=== PATIENT | male | born 1975 | race Caucasian/White ===

== ENCOUNTER 2016-12-26 19:09 | Emergency (ER) | payer BC ==
--- NOTE | ~2016-12-26 | CT4 ---
[facility] A Service of [facility] RADIOLOGY TEXT RESULTS PATIENT: STEVEN LARES LOCATION: [facility] : [birth year] UNIT #: [id number] AGE: [address]: Keron Mcclain MD SEX: M ORDER DR: [id number] [place] [address] [facility]. [place], [place] [address] [id number] E MR#: [id number] Acc #: [id number] NAME: STEVEN LARES : 1975 SEX: M STUDY DATE/TIME: 12/26/2016 18:40 UNIT: [facility] ROOM: STUDY DESCRIPTION: CT Abd and Pelv Wo Cont Attending Physician: Keron Mcclain M.D. Ordering Physician: Keron Mcclain M.D. MEDICAL IMAGING REPORT This report is preliminary unless electronic signature is present EXAM CT abdomen and pelvis without contrast HISTORY Nausea, vomiting, and diarrhea for [address] exam was performed with one or more of the following radiation dose reduction techniques: automatic control, adjustment of mA and/or kV according to patient size, and iterative reconstruction. FINDINGS CT abdomen and pelvis was performed without contrast CT ABDOMEN: No bowel dilatation. Cholecystectomy. The liver, spleen, pancreas, right kidney, and adrenal glands are normal. 5 mm parenchymal calcification in the lateral mid-left kidney. Apparent interval passage of a lower pole left renal stone compared to CT 07/12/2016. Normal caliber abdominal aorta. No adenopathy or ascites. CT PELVIS: Normal appendix. Mild wall thickening of the distal sigmoid colon extending to the central pelvis, could be secondary to short-segment infectious or inflammatory colitis, but there is no adjacent pericolonic stranding. No free fluid in the pelvis. Urinary bladder is unremarkable. Incidental prostatic calcifications. Small umbilical hernia containing fat. IMPRESSION 1. Mild wall thickening of the distal sigmoid colon extending to the central pelvis could be due to mild infectious or inflammatory colitis. However, there is no adjacent inflammatory stranding and no free fluid in the abdomen or pelvis. 2. No acute finding on the remainder of the study. [facility] A Service of [facility] RADIOLOGY TEXT RESULTS PATIENT: STEVEN LARES LOCATION: [facility] : [birth year] UNIT #: [id number] AGE: [address]: Keron Mcclain MD SEX: M ORDER DR: 3. Normal appendix. 4. Cholecystectomy. 5. Small umbilical hernia containing fat measuring close to 1.5 cm. Dictated by... Chun Reis M.D. THIS IS AN ELECTRONICALLY VERIFIED REPORT Chun Reis M.D. at 12/27/2016 4:35 PM DFCasandra/tiffanie TD: 12/26/2016 19:15 JOB #: [id number] MEDICAL IMAGING REPORT Page 1 of 1 COPY
[2016-12-26 15:48] LABS: BASOPHIL% 0.3 % (0-2.5); EOSINOPHIL# 0.1 X10e3 (0-0.7); EOSINOPHIL% 0.8 % (0.0-7.0); HEMATOCRIT 49.4 % (38.0-50.0); HEMOGLOBIN 16.7 gm/dL (13.0-16.0); LYMPHOCYTE# 1.6 X10e3 (1.0-3.5); LYMPHOCYTE% 15.5 % (17.0-45.0); MEAN CELL VOLUME 85.4 FL (83-96); MEAN CORPUSCULAR HEMOGLOBIN 28.9 PG (28-34); MEAN CORPUSCULAR HGB CONC 33.8 g/dL (30-36); MEAN PLATELET VOLUME 9.5 FL (6.5-11.5); MONOCYTE# 0.8 X10e3 (0-1.0); MONOCYTE% 7.6 % (3.0-12.0); NEUTROPHIL# 7.8 X10e3 (1.5-7.1); NEUTROPHIL% 75.8 % (40-75); PLATELET COUNT 256 X10e3 (140-420); RED BLOOD COUNT 5.78 X10e (3.90-5.60); WHITE BLOOD COUNT 10.3 X10e3 (4.0-10.5)
[2016-12-26 15:51] LABS: DIFF IND NO
[2016-12-26 16:24] LABS: ALBUMIN SERUM 4.3 g/dL (3.5-5.0); BILIRUBIN, DIRECT 0.5 mg/dL (0.0-0.2); BILIRUBIN,INDIRECT 0.7 mg/dL (0.0-0.9); BILIRUBIN,TOTAL 1.2 mg/dL (0.2-2.0); BUN/CREATININE RATIO 7.69; CALCIUM SERUM 9.7 mg/dL (8.4-10.2); CREATININE SERUM 1.3 mg/dL (0.6-1.4); GLOM FILT RATE Estimated 67.3 mL/min (>60); POTASSIUM 3.8 mmol/L (3.5-5.1); PROTEIN TOTAL SERUM 7.2 g/dL (6.0-8.3)
[~2016-12-26 19:09] MED LIST: AFRIN15 M1 PO; AZITHROMYCIN250 MG PO; BACTRIM DS TABL1 TA1 PO; BACTRIM DS TABL1 TA2 PO; CIPRO PO; CIPRO250 MG PO; DICLOFENAC PO; FAMOTIDINE PO; FIORICET 50-321 EACH; FLONASE16 GM; HELIDAC KIT; KEFLEX500 M1 PO; LORTAB 5/500 TA1 TA2 PO; NO MEDICATIONS; PHENERGAN25 MG PO; SUDAFED30 M1 PO; TYLENOL #3 PO; VICODIN 5/1 TAB 5/50 PO; VOLTAREN75 MG PO; ZITHROMAX PO
[2016-12-26 19:29] LABS: URINE SOURCE CLEAN CATCH
[2016-12-26 19:30] LABS: CULTURE INDICATED? YES; URBCS1 AUWI 0-2 /[HPF] (0-2); URINE APPEARANCE CLOUDY; URINE BACTERIA AUWI NEG (NEGATIVE); URINE BILIRUBIN NEG (NEG); URINE BLOOD NEG (NEG); URINE COLOR DK YELLOW; URINE GLUCOSE NEG (NEG); URINE KETONE NEG (NEG); URINE LEUKOCYTE ESTERASE NEG (NEG); URINE NITRATE NEG (NEG); URINE PROTEIN 1+ (NEG); URINE SPECIFIC GRAVITY 1.019 (1.003-1.035); URINE SQUAMOUS EPITHELIAL CELL MOD /[HPF]; URINE UROBILINOGEN 0.2 MG/DL (NEG)
== END 2016-12-26 20:35 | disposition home or self-care (01) ==
LOC: CED 19:09
DX: R11.2 Nausea with vomiting, unspecified (principal); R19.7 Diarrhea, unspecified; R79.89 Other specified abnormal findings of blood chemistry; Z87.442 Personal history of urinary calculi; Z90.49 Acquired absence of other specified parts of digestive tract
CPT/HCPCS: 36415; 74176; 80048; 80076; 81003; 83690; 85025; 87086; 96361; 96374; 99284; G0480; J2405

== ENCOUNTER 2017-01-06 16:53 | Observation (INO) | payer BC ==
--- NOTE | ~2017-01-06 | HP ---
Unit #: [id number] #: [id number] Patient: STEVEN LARES [id number] [address] [place], [place] [address] [id number] I MR#: [id number] NAME: STEVEN LAERS ROOM: 226 Age: 41 Sex: M Admission Date: 01/06/2017 : 1975 Attending Physician: Bharat Cary M.D. Referring Physician: Sheldon Sloan M.D. Primary Care Physician: Sheldon Sloan M.D. HISTORY AND PHYSICAL CHIEF COMPLAINT Abdominal pain, nausea, and vomiting. HISTORY OF PRESENTING ILLNESS A 41-year-old male who is pretty healthy with no significant past medical history came because he has been having nausea, vomiting, and diarrhea since December 21. He did have an appointment tomorrow with his primary care provider, Dr. Sloan. Patient was not getting improved. He was taking Zofran [id number]. He came to the ER and was admitted for possible colitis. Patient still feels nauseous. He does not complain of any fever, chills, or rigors, no complaint of hematemesis or hematochezia, no complaint of black-colored stools, and no complaint of chest pain or palpitations. According to patient, this is the first time it has happened to him, and he has never had this problem in the past. PAST MEDICAL HISTORY History of asthma as a child. He is not on any medication at this time. PAST SURGICAL HISTORY 1. Cholecystectomy. 2. Sinus surgery. 3. Lithotripsy multiple times for kidney stones. HOME MEDICATIONS Zofran on p.r.n. basis. ALLERGIES No known drug allergies. SOCIAL HISTORY Patient lives at home with his girlfriend. No history of smoking, alcohol, or drug abuse. FAMILY HISTORY Patient is adopted, so he does not know any family history. PHYSICAL EXAMINATION GENERAL: Patient is lying in bed and does not seem to be in any respiratory distress at this time. He seems pretty comfortable and stable. VITAL SIGNS: Blood pressure is 100/58, respiratory rate 16, pulse 62, temperature 97.5, and oxygen saturation is 99%. HEENT: Head is normocephalic. Eye movements are normal. Conjunctivae are clear. NECK: Supple. No carotid bruit. Unit #: [id number] #: [id number] Patient: STEVEN LARES CHEST: Fair air entry. No additional sounds. CARDIOVASCULAR: S1 and S2 positive. Regular rhythm. ABDOMEN: Soft. Tenderness is present in the right lower quadrant more than the left. Bowel sounds are positive all over. EXTREMITIES: Negative edema. Pulses are palpable. CENTRAL NERVOUS SYSTEM: Awake, alert, and oriented x3. No focal neurological deficit. DIAGNOSTIC STUDIES LABORATORY: WBC 5.8, hemoglobin 13.3, hematocrit 39.8, and platelet count of 160,000. Sodium 139, potassium 3.7, BUN 6, creatinine 0.8, ALT slightly elevated at 44, and indirect bilirubin 1, slightly elevated. Lipase is 20 and amylase is 26. Urinalysis was done which shows trace leukocyte esterase, RBCs 5-10, and urine bacteria is negative. Shigella and stool culture done in the stool which is negative so far. C. difficile has been done which is negative. IMAGING: CT scan of the abdomen and pelvis was done which shows mild residual wall thickening in the sigmoid colon in the same area of wall thickening seen on December 26, 2016. There is no pericolonic stranding, fluid, abscess, or perforation. ASSESSMENT Patient is being admitted to medical/surgical unit with: 1. Intractable nausea, vomiting, and diarrhea. 2. Possible colitis. 3. History of asthma which is stable. PLAN Admit to med/surg unit. Gastroenterology has been consulted. Patient is scheduled for colonoscopy and EGD. IV Flagyl 500 mg t.i.d. is being started, and Levaquin 750 mg daily is being started. Lortab on a p.r.n. basis, Pepcid 20 mg daily, and Zofran on a p.r.n. basis. Labs will be repeated tomorrow morning. The plan of care has been discussed with patient at length, and he does verbalize understanding. Dictated by Casandra Ugalde TD: 01/07/2017 16:01 JOB #: [id number] HISTORY AND PHYSICAL Page 1 of 1 X Leticia Farnsworth MD X HISTORY AND PHYSICAL
--- NOTE | ~2017-01-06 | CT2 ---
[facility] A Service of [facility] RADIOLOGY TEXT RESULTS PATIENT: STEVEN LARES LOCATION: [facility] 226-01 : [birth year] UNIT #: [id number] AGE: [address]: Bharat Cary MD SEX: M ORDER DR: [id number] [facility] [address] [place], [place] [address] [id number] I MR#: [id number] Acc #: [id number] NAME: STEVEN LARES : 1975 SEX: M STUDY DATE/TIME: 01/06/2017 18:51 UNIT: [facility] ROOM: 03647 STUDY DESCRIPTION: CT Abd and Pelv W Cont Attending Physician: Bharat Cary M.D. Referring Physician: Sheldon Sloan M.D. Ordering Physician: Perry Herron D.O. Primary Care Physician: Sheldon Sloan M.D. MEDICAL IMAGING REPORT This report is preliminary unless electronic signature is present EXAM CT abdomen and pelvis with contrast 01/06/2017 1851 hours HISTORY 41-year-old man with complaint of diffuse abdominal pain, vomiting and diarrhea since 12/22/2016. History of prior kidney stones and lithotripsy. COMPARISON CT abdomen and pelvis 12/26/[address] images were obtained from the lung bases to the pubic symphysis with oral and intravenous contrast. Sagittal and coronal reconstructions were performed. Contrast was Isovue-370 100 mL IV. Total exam DLP 913 mGy-cm. This CT exam was performed with one or more of the following radiation dose reduction techniques: Automatic exposure control, adjustment of mA and/or kV according to patient size, and iterative reconstruction. FINDINGS Images through the lung bases are clear. There is no pleural effusion or pneumothorax. The distal esophagus is normal. Images through the abdomen demonstrate a normal appearance to the liver, spleen, pancreas and bile ducts. The gallbladder is surgically absent. The adrenal glands are normal. The kidneys demonstrate no mass, stone or obstruction. There are no ureteral calculi. The abdominal aorta is normal in caliber. The stomach is contracted and unopacified but does appear normal. There is good opacification of the small bowel throughout, with no small bowel wall thickening or distension. The terminal ileum is normal. The [facility] A Service of [facility] RADIOLOGY TEXT RESULTS PATIENT: STEVEN LARES LOCATION: [facility] 226-01 : [birth year] UNIT #: [id number] AGE: [address]: Bharat Cary MD SEX: M ORDER DR: appendix is normal. The colon is moderately well opacified throughout. The right colon, transverse colon and descending colon are normal. Question is raised of minimal residual bowel wall thickening in the sigmoid colon at the same region of mild bowel wall thickening seen on 12/26/2016. If this is a true finding, it is felt likely stable or slightly improved. There is no injection of the pericolonic fat. There is no fluid or abscess. There is no free air. CT pelvis demonstrates a normal appearance to the bladder and seminal vesicles. There are coarse calcifications in the prostate, which are unchanged. The prostate is not enlarged. IMPRESSION 1. Probable mild residual wall thickening in the sigmoid colon in the same area of wall thickening seen on 12/26/2016. This is felt to be stable, perhaps minimally improved. There is no pericolonic stranding, fluid, abscess or perforation. 2. The stomach, small bowel and appendix are normal. Dictated by... Juana Kirk M.D. THIS IS AN ELECTRONICALLY VERIFIED REPORT Juana Kirk M.D. at 01/07/2017 9:29 AM BOSTON/hadley TD: 01/06/2017 23:14 JOB #: [id number] MEDICAL IMAGING REPORT Page 1 of 1 COPY
--- NOTE | ~2017-01-06 | CO ---
Unit #: [id number] #: [id number] Patient: STEVEN LARES [id number] [facility]. [address] [place], [place] [address] [id number] I MR#: [id number] NAME: STEVEN LARES ROOM: 226 Age: 41 Sex: M Admission Date: 01/06/2017 : 1975 Attending Physician: Bharat Cary M.D. Primary Care Physician: Sheldon Sloan M.D. Consultation Date: 01/07/2017 CONSULTATION REPORT PRIMARY CARE PHYSICIAN Sheldon Sloan M.D. REASON FOR CONSULTATION Nausea, vomiting, abdominal pain, and colitis. HISTORY OF PRESENT ILLNESS Mr. Lares is a 41-year-old white gentleman, who works as a photocopy operator. For the past two weeks, he has been having recurrent nausea, vomiting, as well as watery nonbloody diarrhea both during the daytime as well as nighttime. The patient has had two visits to the emergency room and had CAT scan twice and the CAT scan shows left-sided colitis. He denies having any skin rash, fever, or aphthous ulcer in mouth. PAST MEDICAL HISTORY No significant past medical history of note. PAST SURGICAL HISTORY Included cholecystectomy, sinus surgery, and multiple lithotripsies for renal stones. HOME MEDICATIONS Include Zofran. ALLERGIES He has no known drug allergies. SOCIAL HISTORY Lives at home with his girlfriend. Does not smoke or drink alcohol, and does not use any drugs. FAMILY HISTORY Adopted. REVIEW OF SYSTEMS Detailed review of organ systems does not reveal any recent weight loss. No history of fever, chills, or rigors. No history of headache, seizures, chest pain, or syncope. No history of cough, expectoration, or hemoptysis. No history of dysuria, hematuria, or pyuria. No history of focal seizures or extremity weakness. Rest of the review of organ systems is unremarkable. PHYSICAL EXAMINATION GENERAL: On examination, he is alert and oriented, appears comfortable. Unit #: [id number] #: [id number] Patient: STEVEN LARES VITAL SIGNS: Stable with a temperature of 97.8, pulse is 66 per minute and regular, respiratory rate is 16, blood pressure 100/56. HEENT: He has no pallor, icterus, lymphadenopathy, or peripheral edema. CARDIOVASCULAR: Normal heart sounds. No murmurs on auscultation. LUNGS: Reveal normal breath sounds. Good air entry. ABDOMEN: Soft and nontender. Liver and spleen are not palpable. Bowel sounds normal. DIAGNOSTIC STUDIES LABORATORY RESULTS: Shows a normal CBC and serum chemistry with albumin which is preserved at 3.6. IMAGING STUDIES: A CT scan of the abdomen, which was done shows possible sigmoid colitis. CLINICAL IMPRESSION The differential diagnosis here includes gastroenteritis versus infectious colitis versus autoimmune ulcerative colitis. A panendoscopy is warranted. Pros and cons of an upper endoscopy and a colonoscopy were discussed with the patient. He was reassured. The patient will be reviewed following the endoscopic workup. Thank you for asking me to see this pleasant gentleman. I appreciate the consult. Dictated by... Casandra Berry/xochitl TD: 01/08/2017 04:49 JOB #: [id number] Leticia Farnsworth M.D. CONSULTATION REPORT Page 1 of 1 X Florin Mittal MD X CONSULTATION REPORT
--- NOTE | ~2017-01-06 | OR ---
Unit #: [id number] #: [id number] Patient: STEVEN LARES [id number] [address] [place], [place] [address] [id number] I MR#: [id number] NAME: STEVEN LARES ROOM: 226 Date of Procedure: 01/07/2017 Admission Date: 01/06/2017 Surgeon: Florin Mittal M.D. : 1975 Attending Physician: Bharat Cary M.D. Referring Physician: Sheldon Sloan M.D. Primary Care Physician: Sheldon Sloan M.D. OPERATIVE REPORT ADDITIONAL ATTENDING PHYSICIAN Leticia Farnsworth M.D. PRIMARY CARE PHYSICIAN Sheldon Sloan M.D. PREOPERATIVE DIAGNOSES Nausea, vomiting, diarrhea, and colitis on a CAT scan, as well as left and right lower quadrant abdominal pain. PROCEDURES PERFORMED Upper gastrointestinal endoscopy and biopsy as well as colonoscopy with biopsies. POSTOPERATIVE DIAGNOSES For upper endoscopy: Mild antral gastritis, otherwise normal examination up to third part of duodenum. Biopsies were obtained from the antrum for CLOtest. For colonoscopy: Completely normal examination up to cecum and terminal ileum. The quality of the prep was good. Multiple random colonic biopsies were obtained from throughout the colon to rule out microscopic or collagenous colitis. No endoscopic evidence of colitis was seen. RECOMMENDATIONS Symptomatic and supportive treatment is indicated. The patient will be discharged on Colestid and Lomotil, and be followed up in the office in 6 to 8 weeks' time. He can also discontinue Flagyl and Levaquin. SEDATION USED Procedural sedation. A total of 8 mg of Versed and 75 mcg of fentanyl was used. DESCRIPTION OF PROCEDURE Following detailed explanation of potential risks and complications of an upper endoscopy and a colonoscopy, namely perforation, bleeding, complication related to sedation, the patient was brought to GI lab and laid in the left lateral decubitus position. Lubricated tip of the Olympus video upper endoscope was passed through the bite block into the proximal esophagus under direct vision. The entire esophageal mucosa was examined and appeared normal. Z-line was nicely demarcated, there being no esophagitis or hiatus hernia. The scope was then advanced into the Unit #: [id number] #: [id number] Patient: STEVEN LARES gastric cavity and the latter was insufflated. Mucosa of the fundus, body, and antrum was examined. The patient was noted to have mild prepyloric antral erythema and erythematous streaks indicating antral gastritis. Pylorus was intubated with visualization of the normal duodenal bulb and second and third part of the duodenum. Upon withdrawal and retroflexion, incisura, cardia, and greater curve was examined and biopsy was obtained from the antrum for CLOtest. The scope was then withdrawn in the distal esophagus. The entire esophageal mucosa was examined all the way up to pharynx. No additional findings were noted. The examination table was then turned by 180 degrees and the patient positioned for a colonoscopy. A digital rectal examination was performed, which was normal. Lubricated tip of the Olympus video colonoscope was inserted through the anus and advanced under direct vision. The scope was advanced past rectosigmoid into descending colon. No diverticula were noted in this area. The scope tip was then navigated all the way up to cecum with visualization of ileocecal valve and the appendiceal orifice. Preparation was excellent with good visualization and photodocumentation was obtained. Last several inches of the terminal ileum were also visualized after intubation of the ileocecal valve and appeared normal. Successive segments of the colonic mucosa were examined upon withdrawal and appeared unremarkable. There being no polyps, mass lesions, AVMs, or diverticula. The patient did not have any hemorrhoids at the anal verge. Multiple random colonic biopsies were obtained from throughout the colon to rule out microscopic or collagenous colitis. The patient tolerated the procedure without any postprocedure complications. Dictated by... Casandra Berry/xochitl TD: 01/08/2017 01:14 JOB #: [id number] Leticia Farnsworth M.D. OPERATIVE REPORT Page 1 of 1 X Florin Mittal MD X PROCEDURE OPERATIVE NOTE
--- NOTE | ~2017-01-06 | DS ---
Unit #: [id number] #: [id number] Patient: STEVEN LARES [id number] [address] [address] [id number] I MR#: [id number] NAME: STEVEN LARES ROOM: 226 Age: 41 Sex: M Admission Date: 01/06/2017 : 1975 Discharge Date: 01/08/2017 Attending Physician: Bharat Cary M.D. Referring Physician: Sheldon Sloan M.D. Primary Care Physician: Sheldon Sloan M.D. DISCHARGE SUMMARY FINAL DIAGNOSES 1. Abdominal pain which is improved. 2. Intractable nausea and vomiting, improved. 3. Diarrhea. 4. Status post esophagogastroduodenoscopy which shows mild antral gastritis. 5. Status post colonoscopy which is normal. Random biopsies have been taken. 6. Possible irritable bowel syndrome. DISCHARGE MEDICATIONS 1. Lomotil 2.5 mg p.o. q.6 p.r.n. 2. Colestid 1 g p.o. t.i.d. 3. Pepcid 20 mg daily. 4. Tylenol 650 q.6 p.r.n. CONSULTATION DURING HOSPITALIZATION Dr. Mittal - Gastroenterology Services. PROCEDURES PERFORMED DURING HOSPITALIZATION EGD and colonoscopy which is also as above. LAB WORKUP C. diff was negative. Sodium 141, potassium 3.7, chloride 107, BUN 6, creatinine 0.8. CBC shows WBC 4.4, hemoglobin 12.5, hematocrit 37.2 and platelet count of 166. Urinalysis was trace leukocyte esterase, negative bacteria. Urease is negative. HOSPITAL COURSE Mr. Steven Lares is a 41-year-old male who was admitted to the hospital with abdominal pain and intractable nausea and vomiting. The patient was admitted to Med/Surg unit at [facility]. CT scan was done which showed possible colitis. Patient was seen by Dr. Florin Mittal, director supply, and had EGD and colonoscopy done. Findings are as above. Patient most likely has irritable bowel syndrome. Prescription has been written as per GI recommendation. The patient is being discharged home in stable condition. VITAL SIGNS on discharge - blood pressure is 102/65, respiratory rate 16, Unit #: [id number] #: [id number] Patient: STEVEN LARES pulse is 75, temperature 98.0. CHEST has fair air entry, no additional sounds. CVS - regular rhythm. ABDOMEN is soft. DISCHARGE INSTRUCTIONS 1. Follow up with primary care provider in one week. 2. Follow up with Dr. Mittal in one month. Dictated by... Casandra Ugalde TD: 01/10/2017 12:46 JOB #: [id number] DISCHARGE SUMMARY Page 1 of 1 X Leticia Farnsworth MD X DISCHARGE SUMMARY
[2017-01-06 17:14] LABS: BASOPHIL% 0.3 % (0-2.5); EOSINOPHIL# 0.1 X10e3 (0-0.7); HEMATOCRIT 39.8 % (38.0-50.0); HEMOGLOBIN 13.3 gm/dL (13.0-16.0); LYMPHOCYTE# 1.3 X10e3 (1.0-3.5); LYMPHOCYTE% 22.9 % (17.0-45.0); MEAN CELL VOLUME 85.5 FL (83-96); MEAN CORPUSCULAR HEMOGLOBIN 28.7 PG (28-34); MEAN CORPUSCULAR HGB CONC 33.5 g/dL (30-36); MEAN PLATELET VOLUME 9.1 FL (6.5-11.5); MONOCYTE# 0.4 X10e3 (0-1.0); MONOCYTE% 6.6 % (3.0-12.0); NEUTROPHIL% 69.2 % (40-75); PLATELET COUNT 160 X10e3 (140-420); RED BLOOD COUNT 4.65 X10e (3.90-5.60); RED CELL DISTRIBUTION WIDTH 12.6 % (11.0-15.5); WHITE BLOOD COUNT 5.8 X10e3 (4.0-10.5)
[2017-01-06 17:18] LABS: DIFF IND NO
[2017-01-06 17:37] LABS: ALBUMIN SERUM 3.6 g/dL (3.5-5.0); BILIRUBIN, DIRECT 0.1 mg/dL (0.0-0.2); BILIRUBIN,TOTAL 1.1 mg/dL (0.2-2.0); BUN/CREATININE RATIO 7.5; CALCIUM SERUM 9.1 mg/dL (8.4-10.2); CREATININE SERUM 0.8 mg/dL (0.6-1.4); GLOM FILT RATE Estimated 110.2 mL/min (>60); POTASSIUM 3.7 mmol/L (3.5-5.1); PROTEIN TOTAL SERUM 6.1 g/dL (6.0-8.3)
[2017-01-06 18:18] LABS: URINE SOURCE CLEAN CATCH
[2017-01-06 18:26] LABS: URINE APPEARANCE CLEAR; URINE BLOOD NEG (NEG); URINE COLOR DK YELLOW; URINE GLUCOSE NEG (NEG); URINE KETONE TRACE (NEG); URINE LEUKOCYTE ESTERASE TRACE (NEG); URINE NITRATE NEG (NEG); URINE PH 5.5 (5-8); URINE PROTEIN TRACE (NEG); URINE SPECIFIC GRAVITY 1.026 (1.003-1.035)
[2017-01-06 18:29] LABS: URINE BACTERIA AUWI NEG (NEGATIVE); URINE SQUAMOUS EPITHELIAL CELL NONE SEEN /[HPF]; UWBCS1 AUWI 0-2 (0-5)
[2017-01-06 18:33] LABS: CULTURE INDICATED? NO; URINE BILIRUBIN NEG (NEG)
[2017-01-06] MEDS ORDERED: ZOFRAN PO (22:28)
[2017-01-07 06:58] LABS: BASOPHIL% 0.4 % (0-2.5); DIFF IND NO; EOSINOPHIL# 0.1 X10e3 (0-0.7); EOSINOPHIL% 2.2 % (0.0-7.0); HEMATOCRIT 37.2 % (38.0-50.0); HEMOGLOBIN 12.5 gm/dL (13.0-16.0); LYMPHOCYTE# 1.6 X10e3 (1.0-3.5); LYMPHOCYTE% 35.7 % (17.0-45.0); MEAN CELL VOLUME 86.3 FL (83-96); MEAN CORPUSCULAR HEMOGLOBIN 28.9 PG (28-34); MEAN CORPUSCULAR HGB CONC 33.5 g/dL (30-36); MEAN PLATELET VOLUME 9.7 FL (6.5-11.5); MONOCYTE# 0.4 X10e3 (0-1.0); MONOCYTE% 8.5 % (3.0-12.0); NEUTROPHIL# 2.4 X10e3 (1.5-7.1); NEUTROPHIL% 53.2 % (40-75); PLATELET COUNT 166 X10e3 (140-420); RED BLOOD COUNT 4.31 X10e (3.90-5.60); RED CELL DISTRIBUTION WIDTH 12.7 % (11.0-15.5); WHITE BLOOD COUNT 4.4 X10e3 (4.0-10.5)
[2017-01-07 07:34] LABS: BUN/CREATININE RATIO 7.5; CALCIUM SERUM 8.6 mg/dL (8.4-10.2); CREATININE SERUM 0.8 mg/dL (0.6-1.4); GLOM FILT RATE Estimated 110.2 mL/min (>60); POTASSIUM 3.7 mmol/L (3.5-5.1)
[2017-01-08] MEDS ORDERED: FAMOTIDINE PO (16:20)
[2017-01-08] MEDS ORDERED: ACETAMINOPHEN PO (16:20)
[2017-01-08] MEDS ORDERED: LOMOTIL WHITE2.5 M1 PO (16:21)
[2017-01-08] MEDS ORDERED: COLESTID1 GM PO (16:22)
== END 2017-01-08 17:47 | disposition home or self-care (01) | DRG 392 ==
LOC: CED 16:53 → CEDOF 22:20 → C2A 23:44
PROVIDERS: Emergency Medicine; Hospitalist
DX: R10.32 Left lower quadrant pain (principal); R10.31 Right lower quadrant pain; R11.2 Nausea with vomiting, unspecified; R19.7 Diarrhea, unspecified; K29.70 Gastritis, unspecified, without bleeding; R94.8 Abnormal results of function studies of other organs and systems; Z87.09 Personal history of other diseases of the respiratory system; Z90.49 Acquired absence of other specified parts of digestive tract
CPT/HCPCS: 36415; 74177; 80048; 80076; 81003; 82150; 83690; 85025; 87045; 87077; 87177; 87209; 87427; 87493; 87899; 88305; 96361; 96365; 96367; 96372; 96374; 96375; 99285; G0378; J0500; J1956; J2250; J2405; J3010; Q9967

== ENCOUNTER 2017-02-16 18:20 | Emergency (ER) | payer SELFPAY ==
[~2017-02-16 18:20] MED LIST changes: +ACETAMINOPHEN PO; +COLESTID1 GM PO; +LOMOTIL WHITE2.5 M1 PO; +ZOFRAN PO
== END 2017-02-16 19:29 | disposition home or self-care (01) ==
LOC: CED 18:20 → CFTX 18:20
DX: S51.851A Open bite of right forearm, initial encounter (principal); J45.909 Unspecified asthma, uncomplicated; G40.89 Other seizures; Z23 Encounter for immunization; W54.0XXA Bitten by dog, initial encounter; Y92.410 Unspecified street and highway as the place of occurrence of the external cause
CPT/HCPCS: 90471; 90715; 96372; 99283

== ENCOUNTER 2017-02-28 20:11 | Emergency (ER) | payer SELFPAY ==
--- NOTE | ~2017-02-28 | CT2 ---
[facility] A Service of [facility] RADIOLOGY TEXT RESULTS PATIENT: STEVEN LARES LOCATION: [facility] : [birth year] UNIT #: [id number] AGE: [address]: Gisella Maldonado MD SEX: M ORDER DR: [id number] [facility] [address] [place], [place] [address] [id number] E MR#: [id number] Acc #: [id number] NAME: STEVEN LARES : 1975 SEX: M STUDY DATE/TIME: 03/01/2017 0:35 UNIT: [facility] ROOM: STUDY DESCRIPTION: CT Abd and Pelv W Cont Attending Physician: Gisella Maldonado M.D. Ordering Physician: Gisella Maldonado M.D. Primary Care Physician: Shelodn Sloan M.D. MEDICAL IMAGING REPORT This report is preliminary unless electronic signature is present EXAM CT abdomen and pelvis with contrast INDICATION Fever and back pain and right-sided lower back pain for the past 3 days. PROCEDURE Contrast-enhanced CT of the abdomen and pelvis. This CT examination was performed with one or more of the following radiation dose reduction techniques: automatic exposure control, adjustment of mA and/or kV according to patient size, and iterative reconstruction. COMPARISON 01/06/2017. FINDINGS ABDOMEN WITH CONTRAST: There is opacity in the left lung base to a lesser degree the right lung base. Liver, spleen, kidneys, adrenal glands, pancreas unremarkable. Previous cholecystectomy. Bowel loops are nondilated. Appendix is normal. PELVIS WITH CONTRAST: No pelvic mass or fluid. No aggressive appearing bone lesion. IMPRESSION 1. No acute findings in the abdomen or pelvis. 2. Opacity in the left lower lobe and to a lesser degree right lower lobe suspicious for pneumonia. Dictated by... Seamus Boss M.D. [facility] A Service [facility] RADIOLOGY TEXT RESULTS PATIENT: STEVEN LARES LOCATION: [facility] : [birth year] UNIT #: [id number] AGE: [address]: Gisella Maldonado MD SEX: M ORDER DR: THIS IS AN ELECTRONICALLY VERIFIED REPORT Seamus Boss M.D. at 03/04/2017 7:19 AM BRANDY/dane TD: 03/01/2017 09:02 JOB #: [id number] MEDICAL IMAGING REPORT Page 1 of 1 COPY
--- NOTE | ~2017-02-28 | CR72 ---
[facility] A Service of [facility] RADIOLOGY TEXT RESULTS PATIENT: STEVEN LARES LOCATION: [facility] : [birth year] UNIT #: [id number] AGE: [address]: Gisella Maldonado MD SEX: M ORDER DR: [id number] [facility] [address] [place], [place] [address] [id number] E MR#: [id number] Acc #: [id number] NAME: STEVEN LARES : 1975 SEX: M STUDY DATE/TIME: 02/28/2017 21:12 UNIT: [facility] ROOM: STUDY DESCRIPTION: CR Chest Single View Portable Attending Physician: Gisella Maldonado M.D. Ordering Physician: Gisella Maldonado M.D. Primary Care Physician: Sheldon Sloan M.D. MEDICAL IMAGING REPORT This report is preliminary unless electronic signature is present EXAM AP portable chest 02/28/17. COMPARISON STUDIES None. HISTORY Cough, fever, vomiting for 4 days. FINDINGS AP portable view is obtained. Heart size is normal. There is an infiltrate in the left lower lobe. Lungs otherwise are clear. Vascular markings normal. CONCLUSION Left lower lobe infiltrate consistent with pneumonia. Dictated by... Kulwinder Devine M.D. THIS IS AN ELECTRONICALLY VERIFIED REPORT Kulwinder Devine M.D. at 03/01/2017 6:08 PM DENIS/shannan TD: 03/01/2017 06:44 JOB #: [id number] MEDICAL IMAGING REPORT Page 1 of 1 COPY
[2017-02-28 20:55] LABS: INFLUENZA A NEG (NEG); INFLUENZA B NEG (NEG)
[2017-02-28 21:25] LABS: BASOPHIL% 0.1 % (0-2.5); EOSINOPHIL% 0.3 % (0.0-7.0); HEMOGLOBIN 12.7 gm/dL (13.0-16.0); LYMPHOCYTE# 1.5 X10e3 (1.0-3.5); LYMPHOCYTE% 12.3 % (17.0-45.0); MEAN CELL VOLUME 84.2 FL (83-96); MEAN CORPUSCULAR HEMOGLOBIN 28.8 PG (28-34); MEAN CORPUSCULAR HGB CONC 34.3 g/dL (30-36); MEAN PLATELET VOLUME 9.7 FL (6.5-11.5); MONOCYTE# 0.8 X10e3 (0-1.0); MONOCYTE% 6.4 % (3.0-12.0); NEUTROPHIL# 9.5 X10e3 (1.5-7.1); NEUTROPHIL% 80.9 % (40-75); PLATELET COUNT 203 X10e3 (140-420); RED CELL DISTRIBUTION WIDTH 12.3 % (11.0-15.5); WHITE BLOOD COUNT 11.8 X10e3 (4.0-10.5)
[2017-02-28 21:25] LABS: POC - TROPONIN <0.05 ng/mL (<=0.05)
[2017-02-28 21:41] LABS: DIFF IND NO
[2017-02-28 21:53] LABS: ALBUMIN SERUM 3.7 g/dL (3.5-5.0); ALKALINE PHOSPHATASE 62 U/L (32-92); ALT (SGPT) 17 U/L (10-40); AST (SGOT) 21 U/L (10-42); BILIRUBIN, DIRECT 0.4 mg/dL (0.0-0.2); BILIRUBIN,INDIRECT 1.6 mg/dL (0.0-0.9); BLOOD UREA NITROGEN 12 mg/dL (9-23); BUN/CREATININE RATIO 13.33; CALCIUM SERUM 9.1 mg/dL (8.4-10.2); CARBON DIOXIDE 24 mmol/L (22-31); CHLORIDE 103 mmol/L (100-111); CREATININE SERUM 0.9 mg/dL (0.6-1.4); GLUCOSE FASTING 105 mg/dL (70-110); POTASSIUM 3.5 mmol/L (3.5-5.1); PROTEIN TOTAL SERUM 7.2 g/dL (6.0-8.3); SODIUM 135 mmol/L (135-145)
[2017-02-28 21:56] LABS: ALCOHOL BLOOD <5 mg/dL ([, 0])
[2017-02-28 22:21] LABS: URINE SOURCE CLEAN CATCH
[2017-02-28 22:32] LABS: URINE APPEARANCE CLEAR; URINE BLOOD TRACE (NEG); URINE COLOR DK YELLOW; URINE GLUCOSE NEG (NEG); URINE KETONE 2+ (NEG); URINE LEUKOCYTE ESTERASE NEG (NEG); URINE NITRATE NEG (NEG); URINE PROTEIN 1+ (NEG); URINE SPECIFIC GRAVITY 1.028 (1.003-1.035)
[2017-02-28 22:35] LABS: U HYALINE CASTS AUWI 0-2 /[LPF]; URINE BACTERIA AUWI NEG (NEGATIVE); URINE SQUAMOUS EPITHELIAL CELL NONE SEEN /[HPF]; UWBCS1 AUWI 0-2 (0-5)
[2017-02-28 22:39] LABS: CULTURE INDICATED? NO; URINE BILIRUBIN NEG (NEG)
[2017-02-28 22:44] LABS: AMPHETAMINE NEG (NEG); BARBITURATES NEG (NEG); BENZODIAZEPINES NEG (NEG); COCAINE NEG (NEG); MARIJUANA NEG (NEG); OPIATES NEG (NEG); TRICYCLIC ANTIDEPRESSANTS NEG (NEG); U METHADONE NEG (NEG)
== END 2017-03-01 04:18 | disposition home or self-care (01) ==
LOC: CED 20:11
PROVIDERS: Emergency Medicine
DX: J18.1 Lobar pneumonia, unspecified organism (principal); E86.0 Dehydration; D64.9 Anemia, unspecified; J45.909 Unspecified asthma, uncomplicated; Z90.49 Acquired absence of other specified parts of digestive tract
CPT/HCPCS: 36415; 71010; 74177; 80048; 80076; 80307; 81003; 82553; 83605; 84484; 85025; 87040; 87804; 96361; 96365; 96367; 96375; 99284; G0480; J0456; J0696; J1885; J2270; J2405; Q9967

== ENCOUNTER 2017-05-11 00:43 | Emergency (ER) | payer SELFPAY ==
[~2017-05-11] VITALS: Ht 167.6 cm; Wt 81.6 kg
--- NOTE | ~2017-05-11 | CR181 ---
[facility]. [facility] A Service of [facility] RADIOLOGY TEXT RESULTS PATIENT: STEVEN LARES LOCATION: SED : 73 UNIT #: [id number] AGE: [address]: Caro Puga APRN SEX: M ORDER DR: [id number] [place] [id number] E MR#: [id number] Acc #: [id number] NAME: STEVEN LARES : 1975 SEX: M STUDY DATE/TIME: 05/11/2017 01:42 UNIT: SED ROOM: STUDY DESCRIPTION: CR Lumbar Spine 2 or 3 Views Attending Physician: Caro Puga A.P.R.N. Ordering Physician: Caro Puga A.P.R.N. Primary Care Physician: Sheldon Sloan M.D. MEDICAL IMAGING REPORT This report is preliminary unless electronic signature is present. EXAM Lumbar spine 05/11/17 at 01:42 INDICATIONS Low back pain radiating to the right lower extremity for 1 month, worse over the last 2 days. No trauma. FINDINGS Three views of the lumbar spine were obtained. No comparison. No fracture or subluxation is seen. Disc spaces are well maintained. There is some mild degenerative endplate spurring at multiple levels. IMPRESSION Degenerative endplate disease. Otherwise, negative lumbar spine. Dictated by... Efren Winston Jr., M.D. THIS IS AN ELECTRONICALLY VERIFIED REPORT Efren Winston Jr., M.D. at 05/12/2017 4:56 AM Rianna TD: 05/11/2017 22:06 JOB #: [id number] MEDICAL IMAGING REPORT Page 1 of 1
[2017-05-11 01:15] LABS: URINE SOURCE CLEAN CATCH
[2017-05-11 01:18] LABS: URINE APPEARANCE CLEAR; URINE BILIRUBIN NEG (NEG); URINE BLOOD NEG (NEG); URINE COLOR YELLOW; URINE GLUCOSE NEG (NORM); URINE KETONE NEG (NEG); URINE LEUKOCYTE ESTERASE NEG (NEG); URINE NITRATE NEG (NEG); URINE PROTEIN NEG (NEG); URINE UROBILINOGEN 0.2 MG/DL (NORM)
[2017-05-11 01:19] LABS: MICRO INDICATED? NO
[2017-05-11] MEDS ORDERED: MEDROL PO (03:09)
[2017-05-11] MEDS ORDERED: FLEXERIL10 MG PO (03:09)
[2017-05-11] MEDS ORDERED: IBUPROFEN600 MG PO (03:09)
== END 2017-05-11 03:10 | disposition home or self-care (01) ==
LOC: SED 00:43
PROVIDERS: Nurse Practitioner Family
DX: M54.40 Lumbago with sciatica, unspecified side (principal); Z90.49 Acquired absence of other specified parts of digestive tract
CPT/HCPCS: 72100; 81003; 96372; 99284; J1885